=== PATIENT | female | born 1965 | race Caucasian/White ===

== ENCOUNTER 2020-09-02 19:07 | Emergency (ER) | payer OTHER, SELFPAY ==
[2020-09-02 19:22] VITALS: BP 117/86; PULSE 78; RESP 16; TEMP 36.1; O2SAT 100
--- NOTE | 2020-09-02 19:37 | ED.FEMALEGU ---
HPI - Female Genitourinary General Chief complaint: Urogenital-Female Stated complaint: UTI Time Seen by Provider: 09/02/20 19:25 Source: patient and RN notes reviewed Mode of arrival: ambulatory Limitations: no limitations History of Present Illness HPI Narrative: Patient presents today complaining of dysuria, urgency, frequency, and bladder fullness since this morning. Denies hematuria, back pain, fever, sweats, chills, nausea or vomiting. She has been increasing her water intake today without relief of symptoms. Denies any recent antibiotic use. MD elicited complaint: dysuria Related Data Allergies Allergy/AdvReac Type Severity Reaction Status Date / Time No Known Allergies Allergy Verified 09/02/20 19:20 Review of Systems Review of Systems: Narrative: CONSTITUTIONAL: Denies body aches, fever, chills, or sweats. EYES: Denies visual changes, redness, or discharge. ENT: Denies rhinorrhea, congestion, sore throat, or otalgia. CARDIOVASCULAR: Denies chest pain, palpitations, or edema. RESPIRATORY: Denies cough or dyspnea. GASTROINTESTINAL: Denies abdominal pain, nausea, vomiting, or diarrhea. GENITOURINARY: Denies hematuria. + Dysuria, frequency, urgency, lower abdominal fullness SKIN: Denies rash, itching, or wounds. MUSCULOSKELETAL: Denies back pain, joint pain, or myalgia. NEUROLOGIC: Denies headache, numbness, tingling, or weakness. PSYCH: Denies depression or anxiety. [facility] Past Medical History Medical History (Updated 09/02/20 @ 19:41 by Kathryn Pelayo, [facility], ) GERD (gastroesophageal reflux disease) History of thyroid cancer Surgical History Surgical History (Updated 09/02/20 @ 19:39 by Kathryn Pelayo, [facility], ) H/O thyroidectomy Comments At time of signature, I have reviewed and agree with nursing past medical, surgical, social and family history unless otherwise noted. Please see nursing chart for further information. There is no relevant family history pertinent to the presenting complaint Exam Narrative: Exam Narrative: GENERAL: Well-appearing, well-nourished, and in no acute distress. HEAD: Normocephalic, atraumatic. EYES: EOMI. No redness or drainage. Conjunctivae normal. ENT: Mucous membranes pink and moist. NECK: Normal AROM. CHEST: No respiratory distress. Clear to auscultation. HEART: Regular rate and rhythm. No murmur appreciated. ABDOMEN: Soft, nontender, nondistended, normal active bowel sounds. -CVAT EXTREMITIES: Normal range of motion. No edema. SKIN: Warm, dry, no rash. Capillary refill normal. Normal skin turgor. NEURO: No focal deficits. Alert and oriented x3. Gait steady. PSYCH: Normal affect. No signs of depression or anxiety. Course Vital Signs Vital signs: Vital Signs Temperature 97.0 F L 09/02/20 19:22 Pulse Rate 78 09/02/20 19:22 Respiratory Rate 16 09/02/20 19:22 Blood Pressure 117/86 09/02/20 19:22 Pulse Oximetry 100 09/02/20 19:22 Temperature 97.0 F L 09/02/20 19:22 Pulse Rate 78 09/02/20 19:22 Respiratory Rate 16 09/02/20 19:22 Blood Pressure 117/86 09/02/20 19:22 Pulse Oximetry 100 09/02/20 19:22 Reviewed. Pt has been instructed to follow up with her PCP regarding her elevated blood pressure today. MDM - Female Genitourinary Differential Diagnosis Differential diagnosis: Likely urinary tract infection, vaginitis, cystitis and other (Pyelonephritis, interstitial cystitis) Lab Data Attestation: I reviewed the patient's lab results. Labs: Urine Glucose Negative Reference Range: Negative Urine Bilirubin Negative Reference Range: Negative Urine Ketone Negative Reference Range: Negative Urine Specific [place] 1.020 Reference Range:1.001-1.035
== END 2020-09-02 19:44 | disposition home or self-care (01) ==
PROVIDERS: Emergency Provider Nurse Practitioner; PCP Family Medicine
DX: N30.01 Acute cystitis with hematuria (principal); K21.9 Gastro-esophageal reflux disease without esophagitis; Z85.850 Personal history of malignant neoplasm of thyroid
CPT/HCPCS: 81003; 87077; 87086; 87088; 87186; 99203; G0463